=== PATIENT | male | born 1950 | race Caucasian/White ===

== ENCOUNTER → 2016-10-20 | Outpatient (CLI) | payer MEDICARE | LOC: CARD 11:08 | PROVIDERS: ATTEND Family Medicine | DX: I49.9 Cardiac arrhythmia, unspecified (principal) | CPT/HCPCS: 93005 ==

== ENCOUNTER → 2017-05-19 | Outpatient (CLI) | payer MEDICARE ==
[~2017-05-19] MED LIST: BARIUM SUSPENSION 2.1% (VANILLA SILQ) 450 ML PO ONE; CATHETER FLUSH 10 ML SYR IV PRN; IOHEXOL 350 MG/ML 100 ML (OMNIPAQUE 350) VIAL IV ONE; NS 100 ML (IVPB) BAG IV ONE
--- NOTE | 2017-05-19 13:41 | Diagnostic Imaging Report ---
PROCEDURE: CT chest, abdomen, and pelvis with contrast. TECHNIQUE: Multiple contiguous axial images were obtained through the chest, abdomen, and pelvis after the administration of intravenous contrast. INDICATION: Renal cell carcinoma. COMPARISON: Comparison made with prior examination from 04/10/2016. FINDINGS: There are no discrete pulmonary nodules, masses, or infiltrates. There is no pleural or pericardial fluid. There is no pneumothorax. There is no pathologically enlarged adenopathy in the chest. Note is again made of a low-density mass in the right lobe of the liver. This progressively becomes isodense to surrounding liver on delayed imaging and is likely a hemangioma. The gallbladder is unremarkable. There is no biliary ductal dilatation. The spleen is normal. The pancreas and adrenal glands are unremarkable. The right kidney is surgically absent. The left kidney is normal in appearance. The aorta is nonaneurysmal. The bowel gas pattern is nonspecific. There is diverticular disease without evidence of diverticulitis. There is no pelvic mass or adenopathy. There is prominence of the prostate. There are degenerative and postsurgical changes in the lumbar spine. There are a few unchanged sclerotic foci in the spine. There is no definite evidence of osseous metastatic disease. IMPRESSION: No acute abnormality in the chest. Low-density mass which demonstrates peripheral nodular enhancement and becomes slowly isodense to the liver on delayed imaging. This is most suspect for a hemangioma. Diverticular disease without evidence of diverticulitis. Enlargement of the prostate. Unchanged sclerotic lesions in the spine as described. Dictated by: Dictated on workstation # [id number]
--- NOTE | 2017-05-19 17:06 | Diagnostic Imaging Report ---
INDICATION: Renal cancer. COMPARISON: Bone scan from 04/29/[address] chest, abdomen, and pelvis of 05/19/2017. TECHNIQUE: Anterior and posterior scintigraphic images of the whole body were obtained after the intravenous injection of mCi of Tc-99m MDP. FINDINGS: There is normal distribution of tracer throughout the skeleton. Single punctate focus of increased radiopharmaceutical activity in the right posterior iliac wing is more conspicuous than prior bone scan and likely corresponds to a vague sclerotic lesion seen on CT abdomen and pelvis performed 05/19/2017 (image 54, series 5). No additional foci of abnormal radiopharmaceutical activity. IMPRESSION: Unchanged single punctate focus of tracer activity involving the right iliac wing which corresponds to a vague sclerotic lesion on CT. However, this is unchanged in appearance since CT pelvis of 10/08/2010 and is benign in etiology. No evidence of new osseous metastasis. Dictated by: Dictated on workstation # [id number]
== END ==
LOC: CARD 11:33
PROVIDERS: ATTEND Urology
DX: C64.1 Malignant neoplasm of right kidney, except renal pelvis (principal); K57.30 Diverticulosis of large intestine without perforation or abscess without bleeding
CPT/HCPCS: 71260; 74177; 78306

== ENCOUNTER 2017-08-13 08:28 | Emergency (ER) | payer MEDICARE ==
[~2017-08-13] VITALS: Ht 193 cm; Wt 71.7 kg
[2017-08-13] MEDS ORDERED: LACTATED RINGERS 1,000 ML IV ONE (08:53)
[2017-08-13] MEDS ORDERED: AMLO5TAB2 PO (08:58)
[2017-08-13] MEDS ORDERED: TAMS0.4C2 PO (08:58)
[2017-08-13] MEDS ORDERED: MELO15TA39 PO (08:58)
[2017-08-13] MEDS ORDERED: OMEP40CA36 PO (08:58)
[2017-08-13 08:59] LABS: BASOPHILS % (AUTO) 0 % (0-10); EOSINOPHILS # (AUTO) 0.1 10^3/uL (0.0-0.3); EOSINOPHILS % (AUTO) 2 % (0-10); LYMPHOCYTES # (AUTO) 0.8 X 10^3 (1.0-4.0); LYMPHOCYTES % (AUTO) 16 % (12-44); MEAN CORPUSCULAR HEMOGLOBIN 32 PG (25-34); MEAN CORPUSCULAR HGB CONC 35 G/DL (32-36); MEAN CORPUSCULAR VOLUME 91 FL (80-99); MEAN PLATELET VOLUME 9.4 FL (7.4-10.4); MONOCYTES # (AUTO) 0.3 X 10^3 (0.0-1.0); MONOCYTES % (AUTO) 5 % (0-12); NEUTROPHILS # (AUTO) 3.9 X 10^3 (1.8-7.8); NEUTROPHILS % (AUTO) 77 % (42-75); PLATELET COUNT 150 10^3/uL (130-400); RED BLOOD COUNT 4.52 10^6/uL (4.35-5.85); RED CELL DISTRIBUTION WIDTH 12.1 % (10.0-14.5); WHITE BLOOD COUNT 5.1 10^3/uL (4.3-11.0)
[2017-08-13] MEDS ORDERED: ONDANSETRON 4 MG/2 ML (SDV) Z0FRAN IVP ONE (09:00)
--- NOTE | 2017-08-13 09:16 | ED GI ---
General Chief Complaint: Abdominal/GI Problems Stated Complaint: RIGHT SIDE PAIN,N/V/FEVER Nursing Triage Note: PT CO OF ABD PAIN INTERMITTENLY FOR APPROX 4 DAYS ABD PAIN R UPPER QUAD MORE CONT TODAY Sepsis Screen: No Definite Risk Source of Information: Patient History of Present Illness Time Seen By Provider: 08:40 Initial Comments PT ARRIVES VIA POV FROM HOME C/O RIGHT MID AND LOWER ABDOMINAL PAIN OFF AND ON X 4 DAYS, BUT HAS BEEN CONSTANT SINCE LAST NIGHT C/O NAUSEA AND VOMITED A LITTLE THIS AM NO DIARRHEA, BM YESTERDAY AFTER TAKING MILK OF MAGNESIAS HAD SUBJECTIVE FEVER AND CHILLS 2 DAYS AGO HAS HAD SOME PAIN ON URINATION. PT ALWAYS HAS SOME DIFFICULTY URINATING DUE TO ENLARGED PROSTATE, BUT USUALLY DOES NOT HAVE PAIN PT HAS HAD RIGHT NEPHRECTOMY AND ORCHIECTOMY IN 2008 FOR CANCER. NO CHEMO OR RADIATION. NO ONCOLOGY--JUST SEES DR. ENCINAS CURRENTLY HAS A "LESION" ON HIS RIGHT HIP, AND IS GETTING BONE SCANS EVERY 6 MONTHS. HAS NOT TAKEN ANYTHING FOR SYMPTOMS PCP: DR. PHILLIPS UROLOGY: DR. ENCINAS Allergies and Home Medications Allergies Coded Allergies: No Known Drug Allergies (Unverified , 05/08/09) Home Medications Amlodipine Besylate 5 Mg Tablet, 5 MG PO DAILY, (Reported) Meloxicam 15 Mg Tablet, 15 MG PO DAILY, (Reported) Omeprazole 40 Mg Capsule.dr, 40 MG PO DAILY, (Reported) Tamsulosin HCl 0.4 Mg Cap.er.24h, 0.4 MG PO, (Reported) Review of Systems Constitutional: see HPI, chills, fever EENTM: No Symptoms Reported Respiratory: No Symptoms Reported Cardiovascular: No Symptoms Reported Gastrointestinal: See HPI, Abdominal Pain, Constipated, Denies Diarrhea, Nausea , Vomiting Genitourinary: See HPI, Burning, Flank Pain (RIGHT) Musculoskeletal: no symptoms reported Skin: no symptoms reported Psychiatric/Neurological: No Symptoms Reported Endocrine: No Symptoms Reported Hematologic/Lymphatic: No Symptoms Reported Past Ypgoupc-Hgizzr-Bextzp Hx Patient Social History Alcohol Use: Denies Use Recreational Drug Use: Yes Smoking Status: Never a Smoker Recent Foreign Travel: No Contact w/Someone Who Travel: No Recent Infectious Disease Expo: No Recent Hopitalizations: No Physical Abuse: No Sexual Abuse: No Surgeries History of Surgeries: Yes (RIGHT NEPHRECTOMY; RIGHT ORCHIECTOMY) Surgeries: Nephrectomy, Testicular Respiratory History of Respiratory Disorde: No Cardiovascular History of Cardiac Disorders: Yes Cardiac Disorders: Hypertension Neurological History of Neurological Disord: No Reproductive System Hx Reproductive Disorders: No Genitourinary History of Genitourinary Disor: Yes (RENAL / TESTICULAR CANCER) Genitourinary Disorders: Benign Prostatic Hyperpl Gastrointestinal History of Gastrointestinal Di: Yes Musculoskeletal History of Musculoskeletal Dis: Yes ("LESION" RIGHT HIP--GETTING BONE SCANS EVERY 6 MONTHS) Endocrine History of Endocrine Disorders: No Cancer History of Cancer: Yes (2008--S/P RIGHT NEPHRECTOMY AND ORCHIECTOMY. NO CHEMO OR RADIATION. ) Cancer: Testicular, Kidney Did You Recieve Any Treatments: Yes Type of Tx Receive: Surgical Intervention Psychosocial History of Psychiatric Problem: No Suicide Risk Score: 0 Integumentary History of Skin or Integumenta: No Blood Transfusions History of Blood Disorders: No Physical Exam Vital Signs VS - Last 72 Hours, by Label 08/13/17 08:35 Temp 97.2 Pulse 73 Resp 18 B/P (MAP) 156/89 Pulse Ox 99 Capillary Refill : Less Than 3 Seconds General Appearance: WD/WN, no apparent distress HEENT: PERRL/EOMI Neck: normal inspection Respiratory: normal breath sounds, no respiratory distress, no accessory muscle use Cardiovascular: regular rate, rhythm, no murmur Gastrointestinal: soft, no organomegaly, no pulsatile mass, No distended, No guarding, No rebound Extremities: normal inspection, no pedal edema, no calf tenderness, normal capillary refill 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, no motor/sensory deficits, alert, normal mood/affect, oriented x 3 Skin: normal color, warm/dry Progress/Results/Core Measures Results/Orders Lab Results Laboratory Tests Test 08/13/17 08:40 08/13/17 09:21 Range/Units White Blood Count 5.1 4.3-11.0 10^3/uL Red Blood Count 4.52 4.35-5.85 10^6/uL Hemoglobin 14.3 13.3-17.7 G/DL Hematocrit 41 40-54 % Mean Corpuscular Volume 91 80-99 FL Mean Corpuscular Hemoglobin 32 25-34 PG Mean Corpuscular Hemoglobin Concent 35 32-36 G/DL Red Cell Distribution Width 12.1 10.0-14.5 % Platelet Count 150 130-400 10^3/uL Mean Platelet Volume 9.4 7.4-10.4 FL Neutrophils (%) (Auto) 77 H 42-75 % Lymphocytes (%) (Auto) 16 12-44 % Monocytes (%) (Auto) 5 0-12 % Eosinophils (%) (Auto) 2 0-10 % Basophils (%) (Auto) 0 0-10 % Neutrophils # (Auto) 3.9 1.8-7.8 X 10^3 Lymphocytes # (Auto) 0.8 L 1.0-4.0 X 10^3 Monocytes # (Auto) 0.3 0.0-1.0 X 10^3 Eosinophils # (Auto) 0.1 0.0-0.3 10^3/uL Basophils # (Auto) 0.0 0.0-0.1 10^3/uL Sodium Level 141 135-145 MMOL/L Potassium Level 4.1 3.6-5.0 MMOL/L Chloride Level 105 98-107 MMOL/L Carbon Dioxide Level 27 21-32 MMOL/L Anion Gap 9 5-14 MMOL/L Blood Urea Nitrogen 14 7-18 MG/DL Creatinine 1.16 0.60-1.30 MG/DL Estimat Glomerular Filtration Rate > 60 BUN/Creatinine Ratio 12 Glucose Level 156 H 70-105 MG/DL Calcium Level 8.8 8.5-10.1 MG/DL Total Bilirubin 0.8 0.1-1.0 MG/DL Aspartate Amino Transf (AST/SGOT) 17 5-34 U/L Alanine Aminotransferase (ALT/SGPT) 17 0-55 U/L Alkaline Phosphatase 96 40-136 U/L Total Protein 7.1 6.4-8.2 GM/DL Albumin 4.1 3.2-4.5 GM/DL Amylase Level 22 L 25-125 U/L Lipase 4 L 8-78 U/L Urine Color YELLOW Urine Clarity CLEAR Urine pH 6.5 5-9 Urine Specific [place] 1.015 L 1.016-1.022 Urine Protein 2+ H NEGATIVE Urine Glucose (UA) 1+ H NEGATIVE Urine Ketones NEGATIVE NEGATIVE Urine Nitrite POSITIVE H NEGATIVE Urine Bilirubin NEGATIVE NEGATIVE Urine Urobilinogen NORMAL NORMAL MG/DL Urine Leukocyte Esterase 2+ H NEGATIVE Urine RBC (Auto) 3+ H NEGATIVE Urine RBC NONE /HPF Urine WBC >100 H /HPF Urine Crystals NONE /LPF Urine Bacteria LARGE H /HPF Urine Casts NONE /LPF Urine Mucus SMALL H /LPF Urine Culture Indicated YES My Orders Orders - KASHIF VIDES Dewey DO Saline Lock/Iv-Start (08/13/17 08:53) Amylase (08/13/17 08:53) Cbc With Automated Diff (08/13/17 08:53) Comprehensive Metabolic Panel (08/13/17 08:53) Lipase (08/13/17 08:53) Ua Culture If Indicated (08/13/17 08:53) Saline Lock/Iv-Start (08/13/17 08:53) Lactated Ringers (Lr 1000 Ml Iv Solution (08/13/17 08:53) Ondansetron Injection (Zofran Injectio (08/13/17 09:00) Ct Abdomen/Pelvis Wo (08/13/17 09:10) Abdomen, Flat & Upright/Decub (08/13/17 09:10) Urine Culture (08/13/17 09:21) Fentanyl Injection (Sublimaze Injection (08/13/17 09:59) Ceftriaxone Injection (Rocephin Injectio (08/13/17 10:00) Medications Given in ED Current Medications Medications Dose Ordered Sig/Tesfaye Route Start Time Stop Time Status Last Admin Dose Admin Lactated Ringer's 1,000 ml @ 0 mls/hr Q0M ONCE IV 08/13/17 08:53 08/13/17 08:55 DC 08/13/17 09:19 1,000 MLS/HR Ondansetron HCl 4 mg ONCE ONCE IVP 08/13/17 09:00 08/13/17 09:01 DC 08/13/17 09:18 4 MG Vital Signs/I&O Vital Sign - Last 12Hours 08/13/17 08:35 Temp 97.2 Pulse 73 Resp 18 B/P (MAP) 156/89 Pulse Ox 99 Blood Pressure Mean: 111 Departure Impression Impression: Primary Impression: Urinary tract infection Disposition: 01 HOME, SELF-CARE Condition: Improved Departure-Patient Inst. Referrals: BEE PHILLIPS MD (PCP/Family) Primary Care Physician Patient Instructions: Urinary Tract Infection, Adult (DC) Add. Discharge Instructions: LOTS OF CLEAR LIQUIDS--WATER, BROTH, JELLO, GATORADE NO COFFEE, POP OR TEA TYLENOL NEEDED FOR PAIN FOLLOW UP WITH YOUR DR IN 2-3 DAYS IF NO BETTER, RETURN TO ER IF WORSE All discharge instructions reviewed with patient and/or family. Voiced understanding. Scripts Phenazopyridine HCl (Pyridium) 200 Mg Tablet 1 TAB PO TID for BLADDER DISCOMFORT, #15 TAB Prov: KASHIF VIDES DO 08/13/17 Hydrocodone/Acetaminophen (Hydrocodon -Acetaminophen 5-325) 1 Each Tablet 1 EACH PO Q4H, #20 TAB Prov: KASHIF VIDES DO 08/13/17 Sulfamethoxazole/Trimethoprim (Bactrim Ds Tablet) 1 Each Tablet 1 EACH PO BID, #20 TAB Prov: KASHIF VIDES DO 08/13/17 KASHIF VIDES DO Aug 13, 2017 09:16
[2017-08-13 09:19] LABS: ALANINE AMINOTRANSFERASE 17 U/L (0-55); ALBUMIN 4.1 GM/DL (3.2-4.5); AMYLASE 22 U/L (25-125); ANION GAP 9 MMOL/L (5-14); ASPARTATE AMINO TRANSFERASE 17 U/L (5-34); BILIRUBIN,TOTAL 0.8 MG/DL (0.1-1.0); BLOOD UREA NITROGEN 14 MG/DL (7-18); BUN/CREATININE RATIO 12; CALCIUM 8.8 MG/DL (8.5-10.1); CARBON DIOXIDE 27 MMOL/L (21-32); CHLORIDE 105 MMOL/L (98-107); CREATININE SERUM 1.16 MG/DL (0.60-1.30); GFR ESTIMATED > 60; GLUCOSE 156 MG/DL (70-105); LIPASE 4 U/L (8-78); POTASSIUM 4.1 MMOL/L (3.6-5.0); SODIUM 141 MMOL/L (135-145); TOTAL PROTEIN 7.1 GM/DL (6.4-8.2)
[2017-08-13 09:24] LABS: BILIRUBIN,URINE NEGATIVE (NEGATIVE); KETONES,URINE NEGATIVE (NEGATIVE); LEUKOCYTE ESTERASE ,URINE 2+ (NEGATIVE); NITRITE,URINE POSITIVE (NEGATIVE); PH,URINE 6.5 (5-9); PROTEIN,URINE 2+ (NEGATIVE); UROBILINOGEN,URINE NORMAL (NORMAL)
--- NOTE | 2017-08-13 09:47 | Diagnostic Imaging Report ---
INDICATION: Right lower quadrant pain and vomiting. FINDINGS: The lung bases are clear. The bowel gas pattern is nonspecific. There is no free air. There are multiple surgical clips in the right abdomen. IMPRESSION: Nonspecific bowel gas pattern. Dictated by: Dictated on workstation # [id number]
[2017-08-13 09:48] LABS: WBC,URINE >100 /HPF
--- NOTE | 2017-08-13 09:57 | Diagnostic Imaging Report ---
PROCEDURE: CT abdomen and pelvis without contrast. TECHNIQUE: Multiple contiguous axial images were obtained through the abdomen and pelvis without the use of intravenous contrast. INDICATION: Right lower quadrant pain. Comparison made with prior examination 05/19/17. FINDINGS: There is some minimal scarring and/or atelectasis in the lung bases. There is a slightly ill-defined low-density mass in the lateral aspect right lobe of the liver. This has been previously described as likely hemangioma. There are no other focal liver lesions. Gallbladder appears to be unremarkable. There is no biliary ductal dilatation. Spleen is normal. The pancreas and adrenal glands are unremarkable. Right kidney is surgically absent. The left kidney is normal in appearance. The bowel gas pattern is nonspecific. There is diverticular disease without evidence of diverticulitis. There are degenerative and postsurgical changes in the spine. There is no free air. There is no ascites. There is no focal inflammatory process. Specifically, there is no CT evidence of appendicitis. IMPRESSION: Unchanged low-density mass in the liver. This has been previously described as likely hemangioma. Previous right nephrectomy. Diverticular disease without evidence of diverticulitis. Degenerative and postsurgical changes in the spine. Additionally, there are unchanged previously described sclerotic lesions in the spine. No other acute abnormality in the abdomen or pelvis. Dictated by: Dictated on workstation # [id number]
[2017-08-13] MEDS ORDERED: fentaNYL INJECTION 100 MCG/2 ML AMP IVP STA (09:59)
[2017-08-13] MEDS ORDERED: cefTRIAXone INJECTION 1,000 MG in NS (IVPB) 50 ML IV ONE (10:00)
[2017-08-13] MEDS ORDERED: HYDR-3812 PO (10:12)
[2017-08-13] MEDS ORDERED: PHEN-640 PO (10:12)
[2017-08-13] MEDS ORDERED: SULF1TAB35 PO (10:12)
[2017-08-13] MEDS ORDERED: RX-NITROFURANTOIN 100 MG (MACROBID) CAP PPK#2 PO STA (10:12)
[2017-08-13] MEDS ORDERED: PHENAZOPYRIDINE 100 MG (PYRIDIUM) TABLET PO ONE (10:15)
[2017-08-13] MEDS ORDERED: RX-HYDROCODONE/APAP 5/325 MG #4 TAB PK PO PRN (10:15)
[2017-08-13 10:48] VITALS: BP 156/89
== END 2017-08-13 10:48 | disposition home or self-care (01) ==
LOC: EDUNIT# 08:28 → ER 08:29
DX: N39.0 Urinary tract infection, site not specified (principal); I10 Essential (primary) hypertension; N40.0 Benign prostatic hyperplasia without lower urinary tract symptoms; Z85.47 Personal history of malignant neoplasm of testis; Z90.5 Acquired absence of kidney
CPT/HCPCS: 36415; 74020; 74176; 80053; 81000; 82150; 83690; 85025; 85027; 87088

== ENCOUNTER → 2018-05-26 | Outpatient (CLI) | payer MEDICARE ==
[~2018-05-26] MED LIST changes: +ACHD5005 PO; +AMLO5TAB7 PO; -BARIUM SUSPENSION 2.1% (VANILLA SILQ) 450 ML PO ONE; -CATHETER FLUSH 10 ML SYR IV PRN; -IOHEXOL 350 MG/ML 100 ML (OMNIPAQUE 350) VIAL IV ONE; +MELO15TA39 PO; -NS 100 ML (IVPB) BAG IV ONE; +OMEP40CA36 PO; +PHEN-640 PO; +SULF1TAB35 PO; +TAMS0.4C2 PO
--- NOTE | 2018-05-26 09:21 | Diagnostic Imaging Report ---
PROCEDURE: US abdomen complete. TECHNIQUE: Multiple real-time grayscale images were obtained over the abdomen in various projections. INDICATION: Right renal cell carcinoma, status post nephrectomy. The patient also has a known liver lesion. COMPARISON: Correlation is made with CT study from 08/13/2017. FINDINGS: Liver is normal in size. There is a hyperechoic mass in the right lobe measuring approximately 3 cm in size, stable when compared with prior CT. No additional liver mass is detected. Gallbladder appears to contain small polyps. No definite stones are identified. No wall thickening or biliary duct dilatation is seen. The pancreas was obscured by bowel gas. The spleen is unremarkable. Aorta is unremarkable. IVC is obscured by bowel gas. Right kidney is surgically absent. Left kidney is unremarkable. There is no ascites. IMPRESSION: 1. Stable right lobe liver mass when compared with prior CT from 08/13/2017. 2. No evidence of cholelithiasis or acute cholecystitis. 3. Status post right nephrectomy. Dictated by: Dictated on workstation # [id number]
--- NOTE | 2018-05-26 09:50 | Diagnostic Imaging Report ---
PA and lateral chest at 923 hours. INDICATION: Renal cell carcinoma. FINDINGS: The heart size is within normal limits and stable when compared to 05/08/2009. The lungs are clear. There is no evidence for failure, pneumonia or for pleural effusion. The mediastinum is not widened. The osseous structures are intact. In the interval since the prior exam, the patient has undergone a prior surgical procedure involving the lumbar spine. The orthopedic hardware for the fusion of the mid lumbar spine seen on the prior abdomen exam of 08/13/2017 is partially visualized on this study. IMPRESSION: There is no evidence for an acute cardiopulmonary abnormality. Dictated by: Dictated on workstation # [id number]
== END ==
LOC: RAD 08:09
PROVIDERS: ATTEND Urology
DX: C64.9 Malignant neoplasm of unspecified kidney, except renal pelvis (principal); K76.89 Other specified diseases of liver; Z90.5 Acquired absence of kidney
CPT/HCPCS: 71046; 76700

== ENCOUNTER 2018-06-04 02:55 | Emergency (ER) | payer MEDICARE ==
[~2018-06-04] VITALS: Ht 193 cm; Wt 67.1 kg
[2018-06-04 03:20] LABS: BILIRUBIN,URINE NEGATIVE (NEGATIVE); CLARITY,URINE CLEAR; COLOR,URINE YELLOW; GLUCOSE, URINE (UA) NEGATIVE (NEGATIVE); KETONES,URINE NEGATIVE (NEGATIVE); LEUKOCYTE ESTERASE ,URINE NEGATIVE (NEGATIVE); NITRITE,URINE NEGATIVE (NEGATIVE); PH,URINE 6.5 (5-9); PROTEIN,URINE NEGATIVE (NEGATIVE); UROBILINOGEN,URINE NORMAL (NORMAL)
[2018-06-04 03:29] LABS: BACTERIA,URINE NEGATIVE /HPF; RBC,URINE RARE /HPF; SQUAMOUS EPITHELIAL CELL,UR RARE /HPF
--- NOTE | 2018-06-04 03:29 | ED GU-Male ---
General Chief Complaint: -Male Stated Complaint: CAN'T URINATE Nursing Triage Note: Pt c/o difficulty urinating X 1 week. Pt c/o frequency and anuria. Pt states urine has been greenish yellow. Pt also c/o gas. Source: patient History of Present Illness Date Seen by Provider: Jun 04, 2018 Time Seen by Provider: 03:10 Initial Comments C/O DIFFICULTY URINATING X 1 WEEK C/O PAIN ON URINATION, CONSTANT URGE TO VOID, FREQUENCY, VOIDING ONLY SMALL AMOUNTS, WEAK STREAM, AND SENSATION OF INCOMPLETE EMPTYING SENSATION OF FULL BLADDER, BUT NO ACTUAL ABDOMINAL PAIN AND NO FLANK PAIN NO FEVER NO NAUSEA/VOMITING PT SEES DR. ENCINAS EVERY 6 MONTHS FOR ROUTINE EXAM FOR PROSTATE PROBLEMS AND HISTORY OF RIGHT RENAL AND TESTICULAR CANCER IN 2008--TREATED ONLY WITH SURGERY , HAS NEVER BEEN TO ONCOLOGIST. STATES HE HAD ROUTINE APPOINTMENT 05/18/18 AND WAS STARTED ON BACTRIM--PT STATES HE WAS NOT HAVING THESE SYMPTOMS AT THAT TIME, AND IS NOT SURE WHY HE WAS PUT ON THE ANTIBIOTIC. PT STATES HE WAS ALSO STARTED ON PROSCAR TO HELP SHRINK THE PROSTATE PT ALSO HAD ROUTINE ABDOMINAL ULTRASOUND 05/26/18 --NO ACUTE PROCESS, STABLE MASS ON LIVER. PT STATES THESE SYMPTOMS BEGAN 4 DAYS AGO, WAS BETTER FOR A COUPLE OF DAYS, STARTED AGAIN LAST NIGHT, WAS BETTER DURING THE DAY TODAY, AND THEN STARTED UP AGAIN TONIGHT. PCP: DR. PHILLIPS UROLOGIST: DR. ENCINAS Allergies and Home Medications Allergies Coded Allergies: No Known Drug Allergies (Unverified , 05/08/09) Home Medications Amlodipine Besylate 5 Mg Tablet, 5 MG PO DAILY, (Reported) Hydrocodone Bit/Acetaminophen 1 Each Tablet, 1 EACH PO Q4H Prescribed by: KASHIF VIDES on 08/13/17 1012 Meloxicam 15 Mg Tablet, 15 MG PO DAILY, (Reported) Omeprazole 40 Mg Capsule.dr, 40 MG PO DAILY, (Reported) Phenazopyridine HCl 200 Mg Tablet, 1 TAB PO TID Prescribed by: KASHIF VIDES on 08/13/17 1012 Sulfamethoxazole/Trimethoprim 1 Each Tablet, 1 EACH PO BID Prescribed by: KASHIF VIDES on 08/13/17 1012 Patient Home Medication List Home Medication List Reviewed: Yes Review of Systems Review of Systems Constitutional: no symptoms reported Cardiovascular: no symptoms reported Gastrointestinal: no symptoms reported; No abdominal pain Genitourinary: see HPI, dysuria, frequency; denies flank pain; urgency Musculoskeletal: no symptoms reported; No back pain Skin: no symptoms reported Psychiatric/Neurological: No Symptoms Reported Past Sbnttbl-Rbjawe-Qjxwei Hx Patient Social History Alcohol Use: Denies Use Recreational Drug Use: No Recent Foreign Travel: No Contact w/Someone Who Travel: No Recent Infectious Disease Expo: No Recent Hopitalizations: No Physical Abuse: No Sexual Abuse: No Past Medical History Surgeries: Yes (RIGHT NEPHRECTOMY; RIGHT ORCHIECTOMY; LUMBAR SPINE SURERY X 2; CERVICAL SPINE SURGERY X 1) Nephrectomy, Orthopedic, Testicular Respiratory: No Cardiac: Yes Hypertension Neurological: No Reproductive Disorders: No Genitourinary: Yes (RENAL / TESTICULAR CANCER) Benign Prostatic Hyperpl, Prostate Problems Gastrointestinal: Yes (HEMANGIOMA OF LIVER) Musculoskeletal: Yes ("LESION" RIGHT HIP--GETTING BONE SCANS EVERY 6 MONTHS; CHRONIC NECK AND BACK PAIN ) Chronic Back Pain Endocrine: No Cancer: Yes (2008--S/P RIGHT NEPHRECTOMY AND ORCHIECTOMY. NO CHEMO OR RADIATION. HAS NOT BEEN TO ONCOLOIGST, PER PT ) Testicular, Kidney Did You Recieve Any Treatments: Yes What Type of Treatment Did You: Surgical Intervention Psychosocial: No Integumentary: No Blood Disorders: No Physical Exam Vital Signs Vital Signs - First Documented 06/04/18 03:02 Temp 96.6 Pulse 69 Resp 20 B/P (MAP) 161/95 (117) Pulse Ox 99 Capillary Refill : Less Than 3 Seconds Height, Weight, BMI Height: 6'4.00" Weight: 148lbs. oz. 67.488115ce; BMI Method:Stated General Appearance: no apparent distress, thin, other (LAYING OUTSTRETCHED, ARMS OVER HEAD. 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, no motor/sensory deficits, alert, normal mood/affect, oriented x 3 Progress/Results/Core Measures Suspected Sepsis Recent Fever Within 48 Hours: No Infection Criteria Present: None New/Unexplained Altered Menta: No Sepsis Screen: No Definite Risk SIRS Temperature:96.6 Pulse: 69 Respiratory Rate: 20 Blood Pressure 161 /95 Mean: 117 Results/Orders Lab Results Laboratory Tests Test 06/04/18 03:11 Range/Units Urine Color YELLOW Urine Clarity CLEAR Urine pH 6.5 5-9 Urine Specific [place] 1.010 L 1.016-1.022 Urine Protein NEGATIVE NEGATIVE Urine Glucose (UA) NEGATIVE NEGATIVE Urine Ketones NEGATIVE NEGATIVE Urine Nitrite NEGATIVE NEGATIVE Urine Bilirubin NEGATIVE NEGATIVE Urine Urobilinogen NORMAL NORMAL MG/DL Urine Leukocyte Esterase NEGATIVE NEGATIVE Urine RBC (Auto) NEGATIVE NEGATIVE Urine RBC RARE /HPF Urine WBC NONE /HPF Urine Squamous Epithelial Cells RARE /HPF Urine Crystals NONE /LPF Urine Bacteria NEGATIVE /HPF Urine Casts NONE /LPF Urine Mucus NEGATIVE /LPF Urine Culture Indicated NO My Orders Orders - KASHIF VIDES DO Bladder Scan (06/04/18 03:13) Ua Culture If Indicated (06/04/18 03:13) Catheter(Urinary) Insert & Ass (06/04/18 03:53) Vital Signs/I&O 06/04/18 03:02 Temp 96.6 Pulse 69 Resp 20 B/P (MAP) 161/95 (117) Pulse Ox 99 Capillary Refill : Less Than 3 Seconds Blood Pressure Mean: 117 Progress Note : Progress Note POST VOID RESIDUAL 210/266 ML'S ON BLADDER SCAN GALE INSERTED WITH IMMEDIATE RETURN OF OVER 280 ML URINE Departure Impression Primary Impression: Dysuria Additional Impressions: Prostate hypertrophy Urinary retention due to benign prostatic hyperplasia Disposition: 01 HOME, SELF-CARE Condition: Stable Departure-Patient Inst. Referrals: BEE PHILLIPS MD (PCP/Family) Primary Care Physician Patient Instructions: Benign Prostatic Hyperplasia (Enlarged Prostate) (DC), How to Care for Your Gale Catheter, Male, Urinary Retention (DC) Add. Discharge Instructions: CONTINUE YOUR REGULAR MEDICATIONS PRESCRIBED LEAVE CATHETER IN PLACE FOLLOW UP WITH DR. ENCINAS NEXT WEEK FOR FURTHER CARE All discharge instructions reviewed with patient and/or family. Voiced understanding. KASHIF VIDES DO Jun 04, 2018 03:29
[2018-06-04 04:20] VITALS: BP 160/75
== END 2018-06-04 04:25 | disposition home or self-care (01) ==
LOC: EDUNIT# 02:55 → ER 02:58
DX: N40.1 Benign prostatic hyperplasia with lower urinary tract symptoms (principal); R33.9 Retention of urine, unspecified; R30.0 Dysuria; I10 Essential (primary) hypertension; Z85.528 Personal history of other malignant neoplasm of kidney; Z85.47 Personal history of malignant neoplasm of testis; Z90.5 Acquired absence of kidney
CPT/HCPCS: 51702; 81000

== ENCOUNTER 2018-06-04 10:23 | Emergency (ER) | payer MEDICARE ==
[~2018-06-04] VITALS: Ht 193 cm; Wt 67.1 kg
--- NOTE | 2018-06-04 10:48 | ED GU-Male ---
General Stated Complaint: CATHETER NOT WORKING Source: patient Exam Limitations: no limitations History of Present Illness Date Seen by Provider: Jun 04, 2018 Time Seen by Provider: 10:44 Initial Comments The patient is a 68-year-old male who was here earlier in the past 24 hours. He had urinary obstruction and had a Guzmán catheter placed. He returns as it is not draining any urine. Nurses irrigated this and obtained flow. The patient was instructed in self-care irrigation. He is to see urology as an outpatient next week Timing/Duration: just prior to arrival Allergies and Home Medications Allergies Coded Allergies: No Known Drug Allergies (Unverified , 05/08/09) Home Medications Amlodipine Besylate 5 Mg Tablet, 5 MG PO DAILY, (Reported) Hydrocodone Bit/Acetaminophen 1 Each Tablet, 1 EACH PO Q4H Prescribed by: KASHIF VIDES on 08/13/17 1012 Meloxicam 15 Mg Tablet, 15 MG PO DAILY, (Reported) Omeprazole 40 Mg Capsule.dr, 40 MG PO DAILY, (Reported) Phenazopyridine HCl 200 Mg Tablet, 1 TAB PO TID Prescribed by: KASHIF VIDES on 08/13/17 1012 Sulfamethoxazole/Trimethoprim 1 Each Tablet, 1 EACH PO BID Prescribed by: KASHIF VIDES on 08/13/17 1012 Patient Home Medication List Home Medication List Reviewed: Yes Review of Systems Review of Systems Constitutional: see HPI Past Uwmucsi-Ypytao-Zljdem Hx Patient Social History Recent Hopitalizations: No Past Medical History Surgeries: Yes Nephrectomy, Orthopedic, Testicular Respiratory: No Cardiac: Yes Hypertension Neurological: No Reproductive Disorders: No Genitourinary: Yes (RENAL / TESTICULAR CANCER) Benign Prostatic Hyperpl, Prostate Problems Gastrointestinal: Yes (HEMANGIOMA OF LIVER) Musculoskeletal: Yes Chronic Back Pain Endocrine: No Cancer: Yes Testicular, Kidney Did You Recieve Any Treatments: Yes What Type of Treatment Did You: Surgical Intervention Psychosocial: No Integumentary: No Blood Disorders: No Physical Exam Vital Signs Capillary Refill : Height, Weight, BMI Height: 6'4.00" Weight: 148lbs. oz. 67.437678nw; BMI Method:Stated General Appearance: mild distress Progress/Results/Core Measures Suspected Sepsis SIRS Temperature: Pulse: Respiratory Rate: Blood Pressure / Mean: Results/Orders Vital Signs/I&O Capillary Refill : Departure Impression Primary Impression: urinary retention Additional Impression: occluded Guzmán catheter Disposition: HOME, SELF-CARE Condition: Stable/Unchanged Departure-Patient Inst. Decision time for Depature: 10:46 Referrals: BEE PHILLIPS MD (PCP/Family) Primary Care Physician Add. Discharge Instructions: Irrigate catheter as instructed Keep outpatient urology appointment for next week KUNAL BROWN MD Jun 04, 2018 10:48
[2018-06-04 11:07] VITALS: BP 149/96
== END 2018-06-04 11:07 | disposition home or self-care (01) ==
LOC: EDUNIT# 10:23 → ER 10:23
DX: T83.098A Other mechanical complication of other urinary catheter, initial encounter (principal); R33.9 Retention of urine, unspecified; I10 Essential (primary) hypertension; Z85.9 Personal history of malignant neoplasm, unspecified; Z85.528 Personal history of other malignant neoplasm of kidney; Z90.5 Acquired absence of kidney
CPT/HCPCS: 99283

== ENCOUNTER → 2019-06-24 | Outpatient (CLI) | payer MEDICARE ==
[~2019-06-24] MED LIST changes: -AMLO5TAB7 PO; +AMLO5TAB9 PO
--- NOTE | 2019-06-24 09:21 | Diagnostic Imaging Report ---
INDICATION: History of right renal cancer. TECHNIQUE: Single frontal view of the chest COMPARISON: 05/26/2018 FINDINGS: The lung volumes are large. No focal consolidation is seen. No large pleural effusion or pneumothorax is seen. The cardiomediastinal silhouette is normal in size and contour. No acute osseous abnormality is seen. IMPRESSION: Large lung volumes with no acute pulmonary abnormality seen. Dictated by: Dictated on workstation # [id number]
[2019-06-24 09:40] LABS: HEMOGLOBIN 14.5 G/DL (13.3-17.7); MEAN PLATELET VOLUME 8.8 FL (7.4-10.4); RED CELL DISTRIBUTION WIDTH 12.5 % (10.0-14.5); WHITE BLOOD COUNT 5.3 10^3/uL (4.3-11.0)
[2019-06-24 09:57] LABS: BILIRUBIN,URINE NEGATIVE (NEGATIVE); CLARITY,URINE CLEAR; COLOR,URINE YELLOW; GLUCOSE, URINE (UA) NEGATIVE (NEGATIVE); KETONES,URINE NEGATIVE (NEGATIVE); LEUKOCYTE ESTERASE ,URINE NEGATIVE (NEGATIVE); NITRITE,URINE NEGATIVE (NEGATIVE); PH,URINE 7 (5-9); PROTEIN,URINE 1+ (NEGATIVE); UROBILINOGEN,URINE 1 MG/DL (NORMAL)
[2019-06-24 10:04] LABS: ALANINE AMINOTRANSFERASE 27 U/L (0-55); ALBUMIN 4.1 GM/DL (3.2-4.5); ALKALINE PHOSPHATASE 90 U/L (40-136); BILIRUBIN,TOTAL 0.6 MG/DL (0.1-1.0); BUN/CREATININE RATIO 17; CALCIUM 8.7 MG/DL (8.5-10.1); CARBON DIOXIDE 25 MMOL/L (21-32); CHLORIDE 106 MMOL/L (98-107); CREATININE SERUM 1.08 MG/DL (0.60-1.30); GFR ESTIMATED > 60; GLUCOSE 107 MG/DL (70-105); POTASSIUM 4.6 MMOL/L (3.6-5.0); SODIUM 138 MMOL/L (135-145); TOTAL PROTEIN 6.6 GM/DL (6.4-8.2)
[2019-06-24 10:14] LABS: BACTERIA,URINE NEGATIVE /HPF; SQUAMOUS EPITHELIAL CELL,UR RARE /HPF; WBC,URINE RARE /HPF
--- NOTE | 2019-06-24 13:15 | Diagnostic Imaging Report ---
EXAMINATION: Ultrasound renal, limited. INDICATION: Renal cell carcinoma. FINDINGS: The previous abdominal ultrasound exam performed on 05/26/2018 noted that the right kidney was surgically absent. The left kidney was felt to be within normal limits. On this exam, the left kidney is again identified. The left kidney measures 11.4 x 4.9 x 4.8 cm. There is no evidence for solid renal mass or for hydronephrosis and there seems to be good blood flow to the left kidney. The cortex of the left kidney is normal in thickness and echogenicity. There is no shadowing to suggest nephrolithiasis. The bladder was imaged during the course of the exam. The bladder is only partially filled and consequently not well evaluated. There is no obvious bladder abnormality evident. The left ureteral jet was visualized. The prostate gland does appear to be enlarged. The previous CT abdomen/pelvis exam of 08/13/2017 also revealed that the prostate gland was enlarged. The gland measures approximately 6 cm in maximum transverse diameter (normal 5 cm or less). IMPRESSION: 1. The left kidney appears stable. There is no evidence for solid mass or for an acute abnormality. 2. The right kidney is surgically absent. 3. The urinary bladder is grossly unremarkable. 4. The prostate gland is enlarged. Dictated by: Dictated on workstation # [id number]
== END ==
LOC: RAD 08:52
PROVIDERS: ATTEND Urology
DX: N40.0 Benign prostatic hyperplasia without lower urinary tract symptoms (principal); Z90.5 Acquired absence of kidney; Z85.528 Personal history of other malignant neoplasm of kidney
CPT/HCPCS: 36415; 71045; 76775; 80053; 81000; 84153; 85027

== ENCOUNTER 2019-07-15 09:43 | Outpatient (CLI) | payer MEDICARE ==
[~2019-07-15] VITALS: Ht 193 cm; Wt 69.5 kg
[2019-07-15] MEDS ORDERED: PSEU30TA35 PO (11:02)
[2019-07-15] MEDS ORDERED: ESCI10TA PO (11:02)
[2019-07-15] MEDS ORDERED: FINA5TAB6 PO (11:02)
[2019-07-15] MEDS ORDERED: TAMS0.4C98 PO (11:02)
== END 2019-07-15 11:30 | disposition home or self-care (01) ==
LOC: PREOP 09:43
PROVIDERS: ATTEND Surgery
DX: Z01.818 Encounter for other preprocedural examination (principal)

== ENCOUNTER 2019-07-22 10:33 | Day surgery (SDC) | payer MEDICARE ==
[2019-07-22] VITALS (12 sets, daily range): BP systolic 126–164; BP diastolic 74–88
[~2019-07-22] VITALS: Ht 193 cm; Wt 69.5 kg
[~2019-07-22 10:33] MED LIST changes: +ESCI10TA PO; +FINA5TAB6 PO; +OMEP40CA27 PO; -OMEP40CA36 PO; +PSEU30TA35 PO; +TMSL.4C PO
[2019-07-22] MEDS ORDERED: NS IV 500 ML 500 ML ONE (10:36)
[2019-07-22] MEDS ORDERED: NS IV 500 ML 500 ML IV PRN (10:36)
--- NOTE | 2019-07-22 10:40 | Conscious Sedation/ASA ---
Conscious Sedation Pre-Proced Time 10:40 ASA Score 2 For ASA 3 and 4: Consider anesthesia and medical clearance. Also, for patients with a history of failed moderate sedation consider anesthesia. Airway Lungs Heart ASA score ASA 1: a normal healthy patient ASA 2: a patient with a mild systemic disease (mid diabetes, controlled hypertension, obesity ASA 3: a patient with a severe systemic disease that limits activity (angina, COPD, prior Myocardial infarction) ASA 4: a patient with an incapacitating disease that is a constant threat to life (CHF, renal failure) ASA 5: a moribund patient not expected to survive 24 hrs. (ruptured aneurysm) ASA 6: a declared brain- patient whose organs are being harvested. For emergent operations, add the letter E after the classification Mallampati Classification Grade 2 Sedation Plan Analgesia, Amnesia, Plan communicated to team members, Discussed options with patient/fam, Discussed risks with patient/fam The patient is an appropriate candidate to undergo the planned procedure, sedation, and anesthesia. The patient immediately re-assessed prior to indication. VANCE GOLD MD Jul 22, 2019 10:40 POS
[2019-07-22] MEDS ORDERED: ONDANSETRON 4 MG/2 ML (SDV) Z0FRAN IVP PRN (10:45)
[2019-07-22] MEDS ORDERED: LIDOCAINE JELLY 2% 6 ML SYRINGE MM PRN (10:45)
[2019-07-22] MEDS ORDERED: ACETAMINOPHEN 325 MG TABLET PO PRN (10:45)
[2019-07-22] MEDS ORDERED: HYDROcodone/APAP 5 MG/325 MG (LORTAB) TAB PO PRN (10:45)
[2019-07-22] MEDS ORDERED: fentaNYL INJECTION 100 MCG/2 ML AMP IVP ONE (10:45)
[2019-07-22] MEDS ORDERED: morphine INJ 10 MG/ML 1ML (SYR OR VIAL) IVP PRN ×2 (10:45)
--- NOTE | 2019-07-22 10:45 | Progress Note-Pre Operative ---
Pre-Operative Progress Note H&P Reviewed The H&P was reviewed, patient examined and no changes noted. Date Seen by Provider: Jul 22, 2019 Time Seen by Provider: 10:40 Date H&P Reviewed: Jul 22, 2019 Time H&P Reviewed: 10:40 Pre-Operative Diagnosis: VANCE Ozuna MD Jul 22, 2019 10:45 POS
--- NOTE | 2019-07-22 10:46 | Discharge Inst-Surgical ---
D/C Lap Instructions-ALLA Follow Up Appt in 2 weeks Activity as tolerated High Fiber Diet 25g or more per day Avoid Alcohol, Caffeine, Spicy [place] and Acid foods. Drink 64 fluid oz or more of fluids per day. Symptoms to Report: Fever over 101 degree F, Nausea/Vomiting If any problems/questions: Contact your physician or go to Emergency Room VANCE GOLD MD Jul 22, 2019 10:46 POS
[2019-07-22] MEDS ORDERED: LIDOCAINE JELLY 2% 6 ML SYRINGE ONE (13:24)
[2019-07-22] MEDS ORDERED: MIDAZOLAM 5 MG/5 ML (VERSED) VIAL ONE (13:25)
[2019-07-22] MEDS ORDERED: fentaNYL INJECTION 100 MCG/2 ML AMP ONE (13:25)
[2019-07-22] MEDS: MIDAZOLAM 5 MG/5 ML (VERSED) VIAL IV PRN ×3 (13:40→13:47)
--- NOTE | 2019-07-22 14:07 | Progress Note-Post Operative ---
Post-Operative Progess Note Surgeon (s)/Research Affiliate (s) Surgeon VANCE GOLD MD Research Affiliate: none Pre-Operative Diagnosis screening Post-Operative Diagnosis mild chronic stage 2 ext and int hemorrhoids, mild sigmoid diverticulosis. Procedure & Operative Findings Date of Procedure 07/22/19 Procedure Performed/Findings colonoscopy Anesthesia Type cs Estimated Blood Loss Estimated blood loss (mL): minimal Specimens/Packing Specimens Removed none VANCE GOLD MD Jul 22, 2019 14:07 POS
--- NOTE | 2019-07-22 23:55 | OPERATIVE REPORT ---
DATE OF SERVICE: 07/22/2019 ATTENDING PRIMARY CARE PHYSICIAN: Mick Gonsales MD PREOPERATIVE DIAGNOSIS: Screening colonoscopy. POSTOPERATIVE DIAGNOSIS: Mild chronic stage II external and internal hemorrhoids, mild sigmoid diverticulosis. PROCEDURE: Colonoscopy. SURGEON: Vance Gold MD ANESTHESIA: Conscious sedation. ESTIMATED BLOOD LOSS: Minimal. FINDINGS: Mild chronic stage II external and internal hemorrhoids, mild sigmoid diverticulosis. DISPOSITION: The patient tolerated the procedure well. INDICATIONS: The patient is a 69-year-old male in need of a screening colonoscopy. He has not had a colonoscopy up to this point in his life. He reports that he has had some intermittent episodes of constipation; however, no diarrhea. He does not report any red blood per rectum nor any dark tarry stools. He does have a family history of colon cancer with his mother having the disease in her 70s. DESCRIPTION OF PROCEDURE: The patient was brought to the endoscopy suite, laid in the left lateral decubitus position. After adequate IV pain and sedative medications and conscious sedation anesthesia, a digital rectal examination was performed. Mild chronic stage II external and internal hemorrhoids were identified, which were not actively edematous nor inflamed and no bleeding. Normal sphincter tone was felt and there were no palpable masses. Prostate gland was palpable and appeared normal. The endoscope was then intubated and anus and rectum gently insufflated. The endoscope was then advanced to the valves of Castellanos of the rectum with no polyps or any neoplasms identified. We then proceeded through the sigmoid colon where mild sigmoid diverticulosis identified. There were no mucosal inflammatory changes to indicate any active diverticulitis. The endoscope was then advanced through the remainder of the descending, transverse and ascending colon to the cecum. These segments were normal. There were no polyps or any neoplasms identified throughout the colon or rectum. The endoscope was then slowly withdrawn while taking a second look and suctioning residual air with no additional findings. The patient tolerated the procedure well. We will recommend a high fiber diet with 30 grams of fiber daily as well as significant amounts of water to promote soft stools on a daily basis. Due to his first-degree family history of colon cancer, we will recommend a followup colonoscopy in approximately 5 years. Job ID: [id number] DocumentID: [id number] Dictated Date: 07/22/2019 14:04:08 Bonbon Dipper Date: 07/22/2019 23:54:28 Dictated By: VANCE GOLD MD
== END 2019-07-22 14:40 | disposition home or self-care (01) ==
LOC: ENDO 10:33
PROVIDERS: ATTEND Surgery
DX: Z12.11 Encounter for screening for malignant neoplasm of colon (principal); K64.8 Other hemorrhoids; K57.30 Diverticulosis of large intestine without perforation or abscess without bleeding; K64.1 Second degree hemorrhoids; K21.9 Gastro-esophageal reflux disease without esophagitis; Z85.528 Personal history of other malignant neoplasm of kidney; Z90.5 Acquired absence of kidney; Z80.0 Family history of malignant neoplasm of digestive organs; Z82.49 Family history of ischemic heart disease and other diseases of the circulatory system; Z82.3 Family history of stroke

== ENCOUNTER 2022-01-15 08:21 | Emergency (ER) | payer MEDICARE, OTHER ==
[~2022-01-15] VITALS: Ht 193 cm; Wt 64.8 kg
[~2022-01-15 08:21] MED LIST changes: +AMLO-250 PO; -AMLO5TAB9 PO; -OMEP40CA27 PO; +OMEP40CA6 PO; +PS30T PO; -PSEU30TA35 PO; -SULF1TAB35 PO; +SULF1TAB38 PO
--- NOTE | 2022-01-15 09:21 | ED General ---
General Chief Complaint: General Problems/Pain Stated Complaint: BI LAT HAND/FEET NUMBNESS Nursing Triage Note: PT AMB TO RM 9 WITH COMPALINT OF BILATERAL FOOT AND HAND NUMBNESS/TINGLING THAT HAS WORSENED OVER THE LAST FEW DAYS. STATES HAS NUMBNESS/TINGLING FOR YEARS. Source of Information: Patient Exam Limitations: No Limitations History of Present Illness Date Seen by Provider: Jan 15, 2022 Time Seen by Provider: 09:21 Allergies and Home Medications Allergies Coded Allergies: No Known Drug Allergies (Unverified , 07/15/19) Patient Home Medication List Amlodipine Besylate (Amlodipine Besylate) 5 Mg Tablet, 5 MG PO DAILY, (Reported) Entered as Reported by: LILY CORDON on 08/13/17 0858 Escitalopram Oxalate (Lexapro) 10 Mg Tablet, 10 MG PO DAILY, (Reported) Entered as Reported by: EDNA MOISE on 07/15/19 110 Finasteride (Finasteride) 5 Mg Tablet, 5 MG PO DAILY, (Reported) Entered as Reported by: EDNA MOISE on 07/15/19 110 Meloxicam (Meloxicam) 15 Mg Tablet, 15 MG PO DAILY, (Reported) Entered as Reported by: LILY CORDON on 08/13/17 0858 Omeprazole (Omeprazole) 40 Mg Capsule.dr, 40 MG PO DAILY, (Reported) Entered as Reported by: LILY CORDON on 08/13/17 0858 Pseudoephedrine HCl (Sudogest) 30 Mg Tablet, 30 MG PO DAILY, (Reported) Entered as Reported by: EDNA MOISE on 07/15/19 1102 Tamsulosin HCl (Flomax) 0.4 Mg Cap, 0.4 MG PO DAILY, (Reported) Entered as Reported by: EDNA MOISE on 07/15/19 110 Past Yopvnti-Tibhgk-Phoqpa Hx Patient Social History Tobacco Use?: No Use of E-Cig and/or Vaping dev: No Substance use?: No Alcohol Use?: No Pt feels they are or have been: No Immunizations Up To Date Influenza Vaccine Up-to-Date: Yes; Up-to-Date First/Initial COVID19 Vaccinat: 2020 Second COVID19 Vaccination [place]: 2020 Seasonal Allergies Seasonal Allergies: Yes Past Medical History Surgeries: Yes (BACK X2, NECK) Nephrectomy, Orthopedic, Testicular Respiratory: No Cardiac: Yes Hypertension Neurological: No Reproductive Disorders: No Sexually Transmitted Disease: No HIV/AIDS: No Genitourinary: Yes (RENAL / TESTICULAR CANCER) Benign Prostatic Hyperpl, Prostate Problems Gastrointestinal: Yes (HEMANGIOMA OF LIVER) Gastroesophageal Reflux, Chronic Constipation Musculoskeletal: Yes Chronic Back Pain Endocrine: No HEENT: No (DENTURES) Loss of Vision: Denies Hearing Impairment: Denies Cancer: Yes (BASAL CELL REMOVED IN OFFICE) Skin, Testicular, Kidney Did You Recieve Any Treatments: Yes What Type of Treatment Did You: Surgical Intervention Psychosocial: Yes Depression Integumentary: Yes (BASAL CELL CA) Blood Disorders: No Adverse Reaction/Blood Tranf: No (HAS HAD BLOOD WITH NO REACTION) Physical Exam Vital Signs Vital Signs - First Documented 01/15/22 08:32 Temp 36.6 Pulse 115 Resp 20 B/P (MAP) 129/83 (98) Pulse Ox 98 O2 Delivery Room Air Capillary Refill : Less Than 3 Seconds Height, Weight, BMI Height: 6'4.00" Weight: 148lbs. oz. 67.736807iy; 17.00 BMI Method:Stated Progress/Results/Core Measures Suspected Sepsis SIRS Temperature: Pulse: 115 Respiratory Rate: 20 Laboratory Tests 01/15/22 10:07: White Blood Count 21.3H Blood Pressure 129 /83 Mean: 98 Laboratory Tests 01/15/22 10:07: Creatinine 1.18, Platelet Count 166, Total Bilirubin 1.0 Results/Orders Lab Results Laboratory Tests Test 01/15/22 10:07 Range/Units White Blood Count 21.3 H 4.3-11.0 10^3/uL Red Blood Count 5.23 4.30-5.52 10^6/uL Hemoglobin 16.6 13.3-17.7 g/dL Hematocrit 48 40-54 % Mean Corpuscular Volume 92 80-99 fL Mean Corpuscular Hemoglobin 32 25-34 pg Mean Corpuscular Hemoglobin Concent 35 32-36 g/dL Red Cell Distribution Width 13.1 10.0-14.5 % Platelet Count 166 130-400 10^3/uL Mean Platelet Volume 8.5 L 9.0-12.2 fL Immature Granulocyte % (Auto) 1 % Neutrophils (%) (Auto) 84 H 42-75 % Lymphocytes (%) (Auto) 9 L 12-44 % Monocytes (%) (Auto) 6 0-12 % Eosinophils (%) (Auto) 0 0-10 % Basophils (%) (Auto) 0 0-10 % Neutrophils # (Auto) 17.9 H 1.8-7.8 10^3/uL Lymphocytes # (Auto) 1.8 1.0-4.0 10^3/uL Monocytes # (Auto) 1.3 H 0.0-1.0 10^3/uL Eosinophils # (Auto) 0.0 0.0-0.3 10^3/uL Basophils # (Auto) 0.0 0.0-0.1 10^3/uL Immature Granulocyte # (Auto) 0.2 H 0.0-0.1 10^3/uL Neutrophils % (Manual) 86 % Lymphocytes % (Manual) 9 % Monocytes % (Manual) 5 % Eosinophils % (Manual) 0 % Basophils % (Manual) 0 % Band Neutrophils 0 % Blood Morphology Comment NORMAL Sodium Level 138 135-145 MMOL/L Potassium Level 3.6 3.6-5.0 MMOL/L Chloride Level 101 98-107 MMOL/L Carbon Dioxide Level 27 21-32 MMOL/L Anion Gap 10 5-14 MMOL/L Blood Urea Nitrogen 21 H 7-18 MG/DL Creatinine 1.18 0.60-1.30 MG/DL Estimat Glomerular Filtration Rate 65 BUN/Creatinine Ratio 18 Glucose Level 96 70-105 MG/DL Calcium Level 8.5 8.5-10.1 MG/DL Corrected Calcium 8.5 8.5-10.1 MG/DL Magnesium Level 2.1 1.6-2.4 MG/DL Total Bilirubin 1.0 0.1-1.0 MG/DL Aspartate Amino Transf (AST/SGOT) 24 5-34 U/L Alanine Aminotransferase (ALT/SGPT) 68 H 0-55 U/L Alkaline Phosphatase 82 40-136 U/L Total Creatine Kinase 58 30-200 U/L C-Reactive Protein High Sensitivity 0.03 0.00-0.50 MG/DL Total Protein 6.2 L 6.4-8.2 GM/DL Albumin 4.0 3.2-4.5 GM/DL My Orders Orders - ALVINA ALEMAN MD Cbc With Automated Diff (01/15/22 09:31) Comprehensive Metabolic Panel (01/15/22 09:31) Creatine Kinase (01/15/22 09:31) Magnesium (01/15/22 09:31) Ed Iv/Invasive Line Start (01/15/22 09:31) Manual Differential (01/15/22 10:07) Hs C Reactive Protein (01/15/22 11:17) Vital Signs/I&O 01/15/22 08:32 Temp 36.6 Pulse 115 Resp 20 B/P (MAP) 129/83 (98) Pulse Ox 98 O2 Delivery Room Air Capillary Refill : Less Than 3 Seconds Blood Pressure Mean: 98 Departure Impression Primary Impression: Numbness and tingling of both lower extremities Additional Impression: Numbness and tingling of both upper extremities Disposition: 01 HOME, SELF-CARE Condition: Stable Departure-Patient Inst. Decision time for Depature: 12:39 Referrals: NO,LOCAL PHYSICIAN (PCP/Family) Primary Care Physician Patient Instructions: Paresthesia (DC) Add. Discharge Instructions: Your numbness and tingling is likely due to side effect of prednisone, or less likely one of your other medications. Please stop prednisone. You may complete the other medications as prescribed. Please return to the emergency room promptly if you develop weakness of your extremities, problems with bowel or bladder control, severe pain in your neck or back, or any other unusual worsening symptoms. Follow-up with your primary care provider as soon as possible. If symptoms persist more than 2 weeks after stopping prednisone, you may need to have further imaging such as MRI of the head and neck. All discharge instructions reviewed with patient and/or family. Voiced understanding. Copy Copies To 1: DELFINO LEWIS MD, JOSHUA T MD Jan 15, 2022 09:21
[2022-01-15 10:16] LABS: BASOPHILS % (AUTO) 0 % (0-10); EOSINOPHILS % (AUTO) 0 % (0-10); HEMATOCRIT 48 % (40-54); HEMOGLOBIN 16.6 g/dL (13.3-17.7); LYMPHOCYTES # (AUTO) 1.8 10^3/uL (1.0-4.0); LYMPHOCYTES % (AUTO) 9 % (12-44); MEAN CORPUSCULAR HEMOGLOBIN 32 pg (25-34); MEAN CORPUSCULAR HGB CONC 35 g/dL (32-36); MEAN CORPUSCULAR VOLUME 92 fL (80-99); MEAN PLATELET VOLUME 8.5 fL (9.0-12.2); MONOCYTES # (AUTO) 1.3 10^3/uL (0.0-1.0); MONOCYTES % (AUTO) 6 % (0-12); NEUTROPHILS # (AUTO) 17.9 10^3/uL (1.8-7.8); NEUTROPHILS % (AUTO) 84 % (42-75); PLATELET COUNT 166 10^3/uL (130-400); WHITE BLOOD COUNT 21.3 10^3/uL (4.3-11.0)
[2022-01-15 10:34] LABS: CALCIUM 8.5 MG/DL (8.5-10.1); CREATININE SERUM 1.18 MG/DL (0.60-1.30); MAGNESIUM 2.1 MG/DL (1.6-2.4); POTASSIUM 3.6 MMOL/L (3.6-5.0); TOTAL PROTEIN 6.2 GM/DL (6.4-8.2)
[2022-01-15 11:25] LABS: BAND NEUTROPHILS 0 %; BASOPHILS % (MANUAL) 0 %; EOSINOPHILS % (MANUAL) 0 %; LYMPHOCYTES % (MANUAL) 9 %; MONOCYTES % (MANUAL) 5 %; NEUTROPHILS % (MANUAL) 86 %; RBC MORPH NORMAL
[2022-01-15 12:48] VITALS: BP 129/83
== END 2022-01-15 12:48 | disposition home or self-care (01) ==
LOC: EDUNIT# 08:21 → ER 08:25
DX: R20.0 Anesthesia of skin (principal); R20.2 Paresthesia of skin
CPT/HCPCS: 36415; 80053; 82550; 83735; 85007; 85027; 86141